=== PATIENT | male | born 1955 | race Caucasian/White ===

== ENCOUNTER → 2016-10-16 | Outpatient (CLI) | payer BC, OTHER ==
[2016-10-16 07:10] LABS: BASOPHILS # (AUTO) 0.03 10*3/UL; BASOPHILS % (AUTO) 0.6 % (0-1); EOSINOPHILS % (AUTO) 1.4 % (0-8); HEMATOCRIT 48.6 % (42.0-52.0); HEMOGLOBIN 16.2 g/dL (14.0-18.0); IMM GRAN % (AUTO) 0.2 % (0-5); IMM GRAN# (AUTO) 0.01 10*3/UL; LYMPHOCYTES # (AUTO) 1.24 10*3/uL; LYMPHOCYTES % (AUTO) 24.4 % (10-50); MEAN CORPUSCULAR HEMOGLOBIN 28.3 PG (27-31); MEAN CORPUSCULAR HGB CONC 33.3 g/dL (33-37); MEAN PLATELET VOLUME 10.5 FL (7.4-12.2); MONOCYTES # (AUTO) 0.62 10*3/UL (0.3-0.8); MONOCYTES % (AUTO) 12.2 % (5-15); NEUTROPHILS # (AUTO) 3.11 10*3/UL; NEUTROPHILS % (AUTO) 61.2 % (50-80); RED BLOOD COUNT 5.72 10^6/uL (4.70-6.10); WHITE BLOOD COUNT 5.08 10^3/uL (4.8-10.8)
[2016-10-16 07:15] LABS: PLATELET MORPHOLOGY COMMENT NORMAL MORPHOLOGY (NORM)
[2016-10-16 07:22] LABS: BILIRUBIN,TOTAL 1.2 mg/dL (0.3-1.2); BUN/CREATININE RATIO 24.66 (6-20); CALCIUM 9.4 mg/dL (8.7-10.7); CREATININE 1.5 mg/dL (0.70-1.50); LDL CHOLESTEROL,CALCULATED 6.4 mg/dL; TOTAL PROTEIN 6.9 g/dL (6.1-8.0)
[2016-10-16 07:23] LABS: HEMOGLOBIN A1C 10.24 % (4.2-6.0); MEAN BLOOD GLUCOSE (CALC) 254.992 mg/dL
[2016-10-16 07:56] LABS: POTASSIUM 4.3 meq/L (3.8-5.2)
== END ==
LOC: LAB 06:54
PROVIDERS: ATTEND Internal Medicine
DX: E11.9 Type 2 diabetes mellitus without complications (principal); E78.5 Hyperlipidemia, unspecified; J44.9 Chronic obstructive pulmonary disease, unspecified; E66.9 Obesity, unspecified
CPT/HCPCS: 36415; 80053; 80061; 82043; 82550; 83036; 84443; 85025

== ENCOUNTER → 2016-10-23 | Outpatient (CLI) | payer BC, OTHER ==
--- NOTE | 2016-10-23 16:15 | DI ---
History: Chronic cough. Procedure: Study performed from thoracic inlet to the diaphragm without contrast administration. Sagi ttal/coronal reconstructions from the data set. Findings: Prior cholecystectomy. Portions of the liver spleen pancreas and left kidney appear normal. Portions of the adrenal glands appear normal. Pulmonary parenchyma are free of infiltrate or effusion. Tiny calcified granuloma left interlobar fis sure, image 20/47, no clinical significance. Heart is not enlarged. Impression: No focal acute pulmonary process. Solitary granuloma left midlung zone. Prior right sided abdominal surgery, cholecystectomy.
--- NOTE | 2016-10-23 19:15 | DI ---
History: Chronic cough. Evaluate for sinus disease. Procedure: Axial images of the facial sinuses were obtained with sagittal and coronal reconstructions from the data set. CTDI 19.3, DLP 231.2 Findings: Very small frontal air cell complex in this patient ethmoid air cells show slight mucosal p roliferation left side. Nasal septum deviated slightly to the left with a tiny spur no evidence of co ncha bullosa. Right ostiomeatal sinus complex patent without filling defect. Left ostomy and size complex patent wi th small amount of mucosal thickening inferiorly. No air fluid level observed. Some granulation tissue right maxillary sinus. Sella normal. Mastoid air cells well pneumatized and n ormal. Mandible normal. Impression: Some chronic inflammatory changes, left ethmoid, left maxillary and right sphenoid sinus. No air-fluid level. No significant anatomic defects although slight left-sided deviation of the nasa l septum with tiny noncommunicating spur.
== END ==
LOC: CT 12:59
PROVIDERS: ATTEND Internal Medicine
DX: R05 Cough (principal); J32.1 Chronic frontal sinusitis; J44.9 Chronic obstructive pulmonary disease, unspecified
CPT/HCPCS: 70486; 71250

== ENCOUNTER → 2016-11-02 | Outpatient (CLI) | payer BC, OTHER | LOC: RT 11:41 | PROVIDERS: ATTEND Internal Medicine | DX: R05 Cough (principal); J44.9 Chronic obstructive pulmonary disease, unspecified; Z87.891 Personal history of nicotine dependence | CPT/HCPCS: 94060 ==

== ENCOUNTER 2017-01-31 03:58 | Emergency (ER) | payer OTHER ==
[2017-01-31] MEDS ORDERED: LORazepam 2 MG/1 ML VIAL IVP ONE (04:31)
[2017-01-31] MEDS ORDERED: KETOROLAC 15 MG/1 ML VIAL IVP ONE (04:31)
[2017-01-31] MEDS ORDERED: Sodium Chloride 0.9% 1,000 ML PRIMARY IV ONE (04:31)
[2017-01-31 04:35] VITALS: TEMP 97.6
--- NOTE | 2017-01-31 04:38 | PDOC ---
Back Pain / Injury HPI - General Chief Complaint: Neck / Back Complaint Stated Complaint: INCREASED BACK PAIN Date Seen by Provider: 01/31/17 Time Seen by Provider: 04:33 Source: Patient, Spouse Exam Limitations: POSITIVE: No limitations Nurse's Notes Reviewed & Considered: Yes - History of Present Illness Initial Comments: Patient comes in this morning to the emergency room for low back pain. Patient was in his usual state of health yesterday evening. He was helping a friend sand a wall and he began to develop some low back pain. He stopped the sanding and things seemed to improve. Then he assisted his and picking up a memory foam mattress, felt a pop in his lower back, and had significant pain radiating around the right hip and into the right groin. This pain has escalated overnight and continues this morning. Patient denies any incontinence of urine or stool, no foot drop on the right, but he does have decreased strength in his right leg. He denies any nausea vomiting or diarrhea , fever chills or sweats, headache, no shortness of breath, no chest pain. Body Location Affected: REPORTS: Lower Extremity (L), Lower Extremity (R) ( Right greater than left), Back Timing: REPORTS: Abrupt Duration: <24 hours Severity: Severe Quality: REPORTS: "Pain", Stabbing Context: REPORTS: Lifting, Turning, Bending Location at Time of Onset: REPORTS: Home Modifying Factors: improves with: Movement (Movement makes his back worse), Remaining Still (Remaining still improves his pain) Associated Symptoms: REPORTS: Back pain (Lumbar back pain) Similar Symptoms Previously: Yes (history of lumbar surgery) Recent Care Received: REPORTS: Denies Any Prior Injuries Related to Current Complaint?: No - Patient Home Medications Home Medications: Home Medications Gabapentin 1,600 mg PO HS #60 tab 09/19/12 Tiotropium [place] [Spiriva] 1 cap INH DAILY #30 cap 11/11/14 Fluticasone/Salmeterol [Advair 250-50 Diskus] 1 each IH BID PRN 12/31/14 Gabapentin 1 cap PO DAILY #90 cap 05/25/15 Albuterol Sulfate [Proair Hfa] 2 puff INH Q4-6H #1 inhaler 05/30/15 Ropinirole HCl 1 - 2 tab PO QHS PRN #60 tab 01/23/16 Albuterol/Ipratrop Neb Soln [Duoneb Neb Soln] 1 vial NEB Q4-6HRSPRN #1 box 07/06 Naproxen 500 mg ORAL BID #60 tab 08/14/16 Rosuvastatin Calcium [Crestor] 1 tab PO QPM #90 tab 08/22/16 Metformin HCl 1 tab PO BID #60 tab 11/19/16 Cyanocobalamin Inj [Vitamin B-12 Inj] 1 ml IM MONTHLY #6 ml 12/17/16 Pantoprazole Sodium 1 tab PO DAILY #90 tab 12/18/16 Blood Sugar Diagnostic [Glucose Test Strip] 1 each IN 6XD #400 strip 12/24/16 Canagliflozin [Invokana] 300 mg PO DAILY #30 tab 12/27/16 Tramadol HCl 50 mg PO BID PRN #60 12/31/16 Fenofibrate,Micronized [Fenofibrate] 1 tab PO DAILY #30 tab 01/21/17 Dulaglutide [Trulicity] 1.5 mg SUBCUT WEEKLY #12 each 01/29/17 Losartan Potassium 1 tab PO BID #60 tab 01/30/17 - Patient Allergies Allergies/Adverse Reactions: Allergies Allergy/AdvReac Type Severity Reaction Status Date / Time No Known Drug Allergies Allergy NOT Verified 01/31/17 04:14 APPLICABLE PAIN CONTRACT AdvReac Unknown NOT Uncoded 01/31/17 04:14 APPLICABLE Past Medical History - heen HEENT History: Denies History, Dentures/Partials Additional HEENT History: UPPER DENTURES, LOWER PARITALS Cardiovascular History: Hypertension, Hyperlipidemia Respiratory History: COPD, Sleep Apnea, Home CPAP Use, Pulmonary Embolism, Snoring Gastrointestinal History: GERD, Gallbladder Disease Additional Gastrointestinal History: HX OF COLONIC POLYPS Genitourinary History: Denies History Endocrine History: Type 2 Diabetes (oral) Additional Endocrine History: DIABETIC PERIPHERAL NEUROPATHY Musculoskeletal History: Arthritis, Back Pain, Other (please comment) Prosthesis or Implant: Yes (RIGHT KNEE POSSIBLY A SCREW) Additional Musculoskeletal History: chronic pain back/legs Neurological History: Denies History Blood Disorders: Other (please comment) Additional Blood Disorders History: vitamin B12 deficiency Psychiatric History: Denies History History of Sexually Transmitted Diseases: No Cancer History: Denies History In Past Year Been Physically Harmed or Verbally Threatened: No History of MDRO: Yes Other Type of MDRO: CURRENT MRSA STATUS NEGATIVE History of Other Communicable Diseases: No Tobacco Use: Former Smoker Alcohol Use: None Substance Use Type: None Previous Surgical History: Yes Type / Date of Surgery: R ACL REPAIR/ COLONOSCOPY/ LUMBAR SX (DRAINAGE OF LEFT PSOAS ABSCESS, L5 CORPECTOMY, FUSION L4-S1 WITH ALLOGRAFT STRUT IN 2002) / RIGHT PERONEAL NERVE RELEASE/ REPAIR RIGHT CALF TEAR /CARMELA Anesthesia Reactions: No Malignant Hyperthermia: No Significant Family History: Heart disease, Cancer, Diabetes, Hypertension ROS - Limitations ROS Limitations: No Limitations Constitution: REPORTS: Denies Symptoms Cardiovascular: REPORTS: Denies Cardiac Symptoms Respiratory: REPORTS: Denies Resp Symptoms Neurological: REPORTS: Difficulty Walking (Secondary to pain and right leg weakness.) Gastrointestinal: REPORTS: Denies GI Symptoms Endocrine: REPORTS: Denies Symptoms Musculoskeletal: REPORTS: Other (Right-sided lower back pain, hip pain and groin pain) Genitourinary: REPORTS: Denies Symptoms ENT: REPORTS: Denies Symptoms Skin: REPORTS: Denies Skin Symptoms Lympathic: REPORTS: Denies Lympathic Symptoms Immunologic: POSITIVE: Denies Symptoms Psychiatric: POSITIVE: Denies Psych Symptoms Back Physical Assessment - General Appearance General Appearance: REPORTS: Alert, Cooperative, No Evidence of Trauma, Moderate Distress - HEENT HEENT: POSITIVE: Head Inspection Nml, Eyes Inspection Nml, Ears Inspection Nml, Nose Inspection Nml, PERRL, EOMI - Pupil Size Pupil Size: 4 mm: Bilateral - Neck Neck: POSITIVE: Non Tender, Painless ROM, Trachea Midline - Respiratory / CVS Respiratory / CVS: POSITIVE: Chest Non Tender, No Ecchymosis, Breath Sounds Normal, No Respiratory Distress, Heart Sounds Normal, Regular Rate/Rhythm - Abdomen Abdomen: Soft: (All Quadrants), Normal Bowel Sounds: (All Quadrants), Denies Tenderness: (All Quadrants) - Back Back: REPORTS: Normal Inspection, No Vertebral Tenderness, Muscle Spasm (Right paraspinal muscles of the lumbar and sacral region), Limited ROM - Skin Skin: REPORTS: Intact, Normal For Race, Warm, Dry - Extremities Extremity Assessment: Non-Tender: (ALL), Normal ROM: (ALL), No Edema: (ALL), Abnormal ROM: (RLE), Unable / Painful to Bear Weight: (RLE) Musculoskeletal: REPORTS: Back Pain Peripheral Pulses: Radial (L): 2+ - Neurological / Psychological Neuro / Psych: POSITIVE: Oriented X3, fee clerk Normal As Tested, Sensation Normal, Abnormal Reflexes (Decreased DTRs patella) Reflexes: Patellar (R): 1+, Patellar (L): 1+ Back Progress - Results Reviewed by me Xrays/CTs/US Reviewed: Yes Discussed with Radiologist: Yes Lab Results Reviewed: Yes - Patient's Progress Pain Medication Addressed: POSITIVE: Yes Re-Examine Time: 07:49 Status: POSITIVE: Improved MDM / ED Course: Patient was examined, radiographic studies obtained. Patient had an IV started , and received Toradol, fentanyl, Norflex, Ativan, Zofran, and dexamethasone. He was able to sleep and his pain improved. Findings CT scan shows degenerative disease with postsurgical changes and no acute bony abnormalities. Assessment: Acute on chronic low back pain. Plan: Discharge home, Medrol Dosepak, [place], baclofen. He is to follow-up with his back doctor in [facility] Dr. Santamaria. He is to follow-up with his primary care physician Dr. Ramos. - Consult Counseled: POSITIVE: Patient, RE: Lab Results, RE: Radiology Results, RE: DX, RE : Need for F/U Patient Care Time - Estimated PCT Patient Care Time (In Minutes): 45 Vital Signs - Recent Vital Signs Vital Signs: Vital Signs (Last 8 hours) Temp Pulse Resp BP Pulse Ox 01/31/17 03:58 97.6 F 72 18 174/92 94 - VS Reviewed Vital Signs Reviewed: Yes Discharge Clinical Impression: Acute low back pain Discharge Disposition: Discharged to Home Condition: Stable Patient Instructions Given at Discharge: Back Pain (ED)
[2017-01-31] MEDS ORDERED: ONDANSETRON 4 MG/2 ML VIAL ONE (05:02)
[2017-01-31] MEDS ORDERED: ONDANSETRON 4 MG/2 ML VIAL IVP ONE (05:05)
[2017-01-31] MEDS ORDERED: fentaNYL Inj 100 MCG/2 ML VIAL IVP PRN (05:42)
[2017-01-31 08:44] VITALS: RESP 16
--- NOTE | 2017-01-31 11:18 | DI ---
LUMBAR SPINE SERIES, 01/31/2017 4:31 AM: Clinical History: Low back pain. Right leg weakness. Previous Exam: None at this facility. The patient is morbidly obese. This detracts from the overall quality and significantly limits the di agnostic quality of the exam with respect to fine detail structures. In addition, the patient was rocky nging positions slightly during the radiographs and there are somewhat motion artifacts. 4 routine up right films are submitted. The vertebral bodies from T12-L4 are of normal height. There is a grade 2- 3 spondylolisthesis at L5-S1 and a grade 1-2 reverse spondylolisthesis at L4-5. This patient apparent ly has had surgery to the L5 vertebral body with placement of the bone graft that spans the distance between the inferior endplate of L4 and the superior endplate of L5. Posterior fusions have been perf ormed between L4 and S1. There is disc space narrowing at L1-2 and L2-3 and the L3-4 disc space is of normal height. There is a grade 1 reverse spondylolisthesis at L2-3. There are no pars defects from L1-L4. The pedicles are normal from L1-L4. Arthritic changes are present bilaterally in the apophysea l joints from T12 L1-L3 4. Assessment of lower levels is not possible with plain films. Both SI joint s are normal. Readin. Technically difficult and suboptimal exam due to the patient's large body habitus and motion missy facts. 2. Status post interbody fusion between L4 and S1 with a grade 2-3 spondylolisthesis at L5-S1 and gr johnnie 1 reverse spondylolisthesis at L2-3 and L4-5.
== END 2017-01-31 08:14 | disposition home or self-care (01) ==
LOC: ER 03:58
DX: M54.5 Low back pain (principal); E11.40 Type 2 diabetes mellitus with diabetic neuropathy, unspecified; X50.0XXA Overexertion from strenuous movement or load, initial encounter
CPT/HCPCS: 72110; 72131; 96374; 96375; 99282; 99283; J2360; J3010; J1885; J2060; J2405; J7030

== ENCOUNTER → 2017-03-31 | Outpatient (CLI) | payer BC, OTHER ==
[2017-03-31 15:52] LABS: BUN/CREATININE RATIO 20.76 (6-20); CALCIUM 9.3 mg/dL (8.7-10.7); SERUM ALBUMIN 3.9 g/dL (3.5-4.8)
[2017-03-31 15:53] LABS: CHOL/HDL RATIO 3.05 RATIO (0-4.0); CREATININE, URINE 76.6 MG/DL (15-500)
[2017-03-31 15:55] LABS: HEMOGLOBIN A1C 6.07 % (4.2-6.0)
== END ==
LOC: LAB 15:01
PROVIDERS: ATTEND Internal Medicine
DX: E11.9 Type 2 diabetes mellitus without complications (principal); E78.5 Hyperlipidemia, unspecified; I10 Essential (primary) hypertension
CPT/HCPCS: 36415; 80053; 80061; 82043; 82550; 83036

== ENCOUNTER → 2017-05-16 | Outpatient (CLI) | payer BC, OTHER | LOC: SLEEP LAB 19:57 | PROVIDERS: ATTEND Internal Medicine | DX: G47.33 Obstructive sleep apnea (adult) (pediatric) (principal); G47.34 Idiopathic sleep related nonobstructive alveolar hypoventilation | CPT/HCPCS: 95811 ==

== ENCOUNTER → 2017-06-04 | Outpatient (CLI) | payer BC, OTHER ==
--- NOTE | 2017-06-04 19:42 | DI ---
LEFT LONG FINGER EXAM, 06/04/2017 3:46 PM: Clinical History: Injury to the distal phalanx. Previous Exam: None at this facility. 3 views are submitted. There is an open intra-articular fracture of the distal phalanx. The articular surface involvement is approximately 50% and the fracture fragment is on the dorsal aspect of the di stal phalanx near the attachment of the extensor tendon slip. A laceration is present along the later al aspect of the distal phalanx. Reading: Open intra-articular fracture of the distal phalanx.
== END ==
LOC: MOB RAD 15:48
DX: S67.193A Crushing injury of left middle finger, initial encounter (principal); S62.633A Displaced fracture of distal phalanx of left middle finger, initial encounter for closed fracture; S60.132A Contusion of left middle finger with damage to nail, initial encounter; W20.8XXA Other cause of strike by thrown, projected or falling object, initial encounter; Y93.H3 Activity, building and construction
CPT/HCPCS: 73140